=== PATIENT | female | born 1940 | race African-American/Black ===

== ENCOUNTER 2020-08-19 19:33 | Emergency (ER) | payer MEDICARE, SELFPAY ==
--- NOTE | ~2020-08-19 | CT_ITS ---
EXAMINATION: CT cervical spine wo con DATE: 08/19/2020 20:14 INDICATION: Neck pain TECHNIQUE: Computed tomography (CT) of the cervical spine was performed without intravenous contrast. The dose-length product (DLP) was 164.60 mGy-cm. Automated exposure control and iterative reconstruc tion technique were employed. COMPARISON: None FINDINGS: There are 3 mm of retrolisthesis of C3 on C4 and 2 mm of anterolisthesis of C4 on C5 and C5 on C6. There is no fracture. The vertebral body heights are maintained. There is severe loss of inte rvertebral disc space height at C3-4. There is severe facet osteoarthritis at C1-2. The odontoid is i ntact. There is moderate to severe facet and uncovertebral joint osteoarthritis throughout the cervic al spine. The prevertebral soft tissues are normal. IMPRESSION: 1. Severe cervical spondylosis without acute findings. Reviewed, dictated and finalized at location A. LOGIST
--- NOTE | ~2020-08-19 | CT_ITS ---
EXAMINATION: CT brain wo con INDICATION: Headache COMPARISON: None TECHNIQUE: Standard unenhanced head CT. The dose-length product (DLP) was 605.33 mGy-cm. The mA was a djusted according to patient size. Iterative reconstruction technique was employed. FINDINGS: There is no acute intraparenchymal hemorrhage. No evidence of mass lesion. No evidence of a cute infarction. There is mild periventricular and subcortical hypodensity probably related to small vessel ischemic disease. There is mild prominence of the sulci and ventricles related to cerebral atr ophy. Intracranial calcified cerebral atherosclerosis is noted. There are no extra-axial collections. There is no mass effect or midline shift. The orbits and soft tissues are unremarkable. The visuali zed sinuses and mastoid air cells are well aerated. IMPRESSION: 1. No acute intracranial abnormality. 2. Age related findings. Reviewed, dictated and finalized at location A. TIONAL DIRECTOR
--- NOTE | ~2020-08-19 | XR_ITS ---
EXAMINATION: XR femur LT min 2V INDICATION: Left leg pain, initial encounter TECHNIQUE: Two views of the left femur are obtained on four radiographs. COMPARISON: None available FINDINGS: There is an acute, traumatic, closed, spiral mid shaft of the femur. The distal fracture fr agment is medially displaced and overriding. There is dorsal angulation at the fracture site. 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 Calcified atheroscl erosis is noted. Phleboliths are noted in the pelvis. IMPRESSION: 1. Acute displaced fracture of the distal femur. Reviewed, dictated and finalized at location A. TRIC INSTALLER
[2020-08-19 19:34] VITALS: BP 151/85; PULSE 70; RESP 14; TEMP 37; O2SAT 100
--- NOTE | 2020-08-19 20:18 | ED.GENADULT ---
HPI - General Adult General Chief complaint: Fall Stated complaint: ground level fall-l knee and l thigh injury Time Seen by Provider: 08/19/20 19:38 Source: patient and EMS History of Present Illness HPI narrative: Patient is a 80 y/o female brought in by EMS for fall and left leg pain. Patient has dementia and cannot recall how she fell. She endorses left leg pain. She is unable to characterize her pain or rate her pain. Daughter states that patient was in a different room when she fell. When daughter went to check on the patient, patient was on the ground with left leg twisted. 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 Hypothyroid Surgical History Surgical History H/O: hysterectomy Social History Social History Smoking status: Never smoker Gender identity (if verbalized by the patient): Female Exam Const: General: no acute distress and well developed Orientation/consciousness: oriented to person and confusion HENMT: Head: normocephalic Ears: external ears normal General nose exam: Normal external nose present Eyes: General: appearance normal, both eyes and all related structures Conjunctivae: conjunctivae normal Neck: Neck: normal visual inspection and full ROM Chest: Chest palpation & inspection: normal inspection of the chest and no tenderness Resp: Effort & Inspection: normal respiratory effort Auscultation: clear to auscultation bilaterally Cardio: Rate: regular rate Rhythm: regular rhythm GI: GI Palp: No abdominal tenderness and Yes Soft to palpation Skin: General skin exam: normal color and turgor normal Neuro: General: oriented to person Cognition (Neuro): normal cognition Extrem: General: normal to inspection, full ROM and no pedal edema Left lower extremity: hip/thigh Details: tenderness and swelling Psych: Appearance: grossly normal Mental Status: mental status grossly normal Affect: normal affect Course Reevaluation(s) Reevaluation #1: Discussed with daughter about Dr. Jennings's recommends. Daughter states that patient had seen Dr. Wills at [facility] and requests that Dr. Wills be contacted for transfer. However, Dr. Wills was not able to be contacted. Date: 08/19/20 Time: 20:47 Reevaluation #2: Daughter request contract Dr. Ennis at [facility] for possible transfer. She states that Dr. Ennis did patient's knee surgery in the past. Discussed with Dr. Raman (helper steel fabrication for Dr. Ennis). Dr. Raman declined transfer. Date: 08/19/20 Time: 21:15 Reevaluation #3: Patient care is transferred to Dr. Chaves pending disposition. Date: 08/19/20 Time: 21:52 Consultations Consultation #1: Discussed with Dr. Jennings, who recommends transfer. Date: 08/19/20 Time: 20:40 Vital Signs Vital signs: Vital Signs Temperature 37.0 C 08/19/20 19:34 Pulse Rate 70 08/19/20 19:34 Respiratory Rate 14 08/19/20 19:34 Blood Pressure 151/85 H 08/19/20 19:34 Pulse Oximetry 100 08/19/20 19:34 Temperature 37.0 C 08/19/20 19:34 Pulse Rate 69 08/19/20 23:30 Respiratory Rate 16 08/19/20 23:30 Blood Pressure 106/63 08/19/20 23:30 Pulse Oximetry 95 08/19/20 23:30 Medical Decision Making Vital Signs Vital Signs: Vital Signs Temperature 37.0 C 08/19/20 19:34 Pulse Rate 70 08/19/20 19:34 Res
[2020-08-19 20:59] LABS: Basophils Percent Auto 0.2 % (0.2-1.2); Eosinophils Percent Auto 0.7 % (0-4.4); Hematocrit 35.8 % (37.0-47.0); Hemoglobin 11.7 g/dL (12.0-15.0); Immature Granulocyte Absolute 0.01 K/mm3 (0.00-0.031); Immature Granulocyte Percent A 0.2 % (0-0.5); Lymphocytes Absolute Auto 1.35 K/mm3 (0.9-3.2); Lymphocytes Percent Auto 23.1 % (18.3-44.2); Mean Corpuscular HGB Conc 32.7 g/dl (32-36); Mean Corpuscular Hemoglobin 30.2 pg (26-34); Mean Corpuscular Volume 92.3 fl (80-100); Mean Platelet Volume 8.9 fl (7.4-10.4); Monocytes Absolute Auto 0.3 K/mm3 (0.1-0.6); Monocytes Percent Auto 5.8 % (2.6-8.5); Neutrophils Absolute Auto 4.1 K/mm3 (1.3-6.7); Platelet Count Result 174 k/mm3 (150-375); Red Blood Count 3.88 M/mm3 (4.2-5.4); Red Cell Distribution Width 12.9 % (11.5-14.5); White Blood Count 5.9 K/mm3 (4.5-10.0)
[2020-08-19 21:09] LABS: INR 0.9; Prothrombin Time 13.2 Seconds (11.1-14.7)
[2020-08-19 21:10] LABS: Partial Thromboplastin Time 27.8 SECONDS (22.3-36.8)
[2020-08-19 21:11] LABS: Alanine Aminotransferase 11 U/L (4-35); Albumin Level 3.9 g/dL (3.5-5.1); Alkaline Phosphatase 84 U/L (38-126); Anion Gap 3 mmol/L (8-16); Aspartate Amino Transferase 31 U/L (14-36); Bilirubin,Total 0.8 mg/dL (0.2-1.3); Blood Urea Nitrogen 21 mg/dL (7-17); Calcium 9.2 mg/dL (8.4-10.2); Carbon Dioxide 30 mmol/L (22-30); Chloride 100 mmol/L (98-107); Estimated Glomerular Filt Rate > 60; Glucose 84 mg/dL (65-105); Potassium 4.6 mmol/L (3.4-5.0); Sodium 133 mmol/L (137-145)
[2020-08-19 21:34] VITALS: BP 121/66; PULSE 68; RESP 12; O2SAT 100
[2020-08-19] MEDS: MORPHINE SULFATE (*CRX) 2 MG/ML INJ IV PUSH (21:45)
[2020-08-19 23:30] VITALS: BP 106/63; PULSE 69; RESP 16; O2SAT 95
== END 2020-08-20 00:24 | disposition short-term general hospital (02) ==
PROVIDERS: Emergency Medicine; Emergency Provider Emergency Medicine; PCP Nurse Practitioner Family
DX: S72.342A Displaced spiral fracture of shaft of left femur, initial encounter for closed fracture (principal); G30.9 Alzheimer's disease, unspecified; F02.80 Dementia in other diseases classified elsewhere, unspecified severity, without behavioral disturbance, psychotic disturbance, mood disturbance, and anxiety; M17.0 Bilateral primary osteoarthritis of knee; M19.019 Primary osteoarthritis, unspecified shoulder; E03.9 Hypothyroidism, unspecified; D64.9 Anemia, unspecified; M47.812 Spondylosis without myelopathy or radiculopathy, cervical region; W19.XXXA Unspecified fall, initial encounter
CPT/HCPCS: 36415; 70450; 72125; 73552; 80053; 85025; 85610; 85730; 96374; 99285; J2270